=== PATIENT | female | born 1955 | race Caucasian/White ===

== ENCOUNTER → 2020-12-21 | Outpatient (CLI) | payer MEDICARE ==
[~2020-12-21] MED LIST: ACET325T14 PO; ASPI81TA45 PO; ATOR40TA78 PO; CHOL10003 PO; IBUP200C8 PO; LEVO50TA5 PO; LOSA1TAB25 PO; ZINC50CA PO; vitamin e PO
[2020-12-21 16:24] LABS: ALANINE AMINOTRANSFERASE 35 U/L (12-78); ANION GAP 5 mmol/L (5-15); CHLORIDE 99 mmol/L (98-107); CREATININE 0.68 mg/dL (0.55-1.02)
[2020-12-21 16:26] LABS: ALKALINE PHOSPHATASE 115 U/L (45-117); BILIRUBIN,TOTAL 0.5 mg/dL (0.2-1.0); TOTAL PROTEIN 7.6 g/dL (6.4-8.2)
== END | disposition home or self-care (01) ==
LOC: STAR 15:13
PROVIDERS: ATTEND Surgery
DX: Z01.818 Encounter for other preprocedural examination (principal); C50.412 Malignant neoplasm of upper-outer quadrant of left female breast
CPT/HCPCS: 36415; 80053; 93005

== ENCOUNTER 2020-12-26 06:58 | Day surgery (SDC) | payer MEDICARE ==
[~2020-12-26] VITALS: Ht 167.6 cm; Wt 74.5 kg
[2020-12-26 07:23] VITALS: BP 164/81
[2020-12-26] MEDS ORDERED: CHLORHEXIDINE 15 ML UDC PO ONE (07:30)
[2020-12-26] MEDS ORDERED: LIDOCAINE-MPF 1%, 2ML INFIL ONE (07:30)
[2020-12-26] MEDS ORDERED: LACTATED RINGERS 1,000 ML IV SCH (07:30)
[2020-12-26] MEDS ORDERED: LIDOCAINE/PF 1%, 30ML ONE (09:33)
[2020-12-26] MEDS ORDERED: ISOSULFAN BLUE 10 MG/ML, 5ML IV ONE (09:33)
[2020-12-26] MEDS ORDERED: EPINEPHRINE 1 MG/ML, 1ML ONE (09:33)
[2020-12-26] MEDS ORDERED: BUPIVACAINE/PF 0.5% ONE (09:33)
[2020-12-26] MEDS ORDERED: SCOPOLAMINE 1MG PATCH TD SCH (10:00)
[2020-12-26] MEDS ORDERED: HYDROmorphone 1 MG/ML, 1ML INJ IVPush PRN (10:30)
[2020-12-26] MEDS ORDERED: MEPERIDINE/PF 25MG/0.5ML IVPush PRN (10:30)
[2020-12-26] MEDS ORDERED: ONDANSETRON 2MG/ML, 2ML IVPush PRN (10:30)
[2020-12-26] MEDS ORDERED: HYDROcodone/APAP 7.5-325MG/15ML UDC PO PRN (10:30)
[2020-12-26] MEDS ORDERED: PROMETHAZINE 25 MG/ML, 1ML IVPush PRN (10:30)
[2020-12-26] MEDS ORDERED: PROPOFOL 10 MG/ML, 20ML ONE (10:47)
[2020-12-26] MEDS ORDERED: CEFAZOLIN 1,000 MG ONE (10:47)
[2020-12-26] MEDS ORDERED: SCOPOLAMINE 1MG PATCH TD ONE (10:47)
[2020-12-26] MEDS ORDERED: FENTANYL PF 100 MCG/2ML ONE ×3 (10:47→12:30)
[2020-12-26] MEDS ORDERED: DEXAMETHASONE 4 MG/ML, 1ML ONE (10:47)
[2020-12-26] MEDS ORDERED: MIDAZOLAM 1 MG/ML, 2ML ONE (10:47)
[2020-12-26] MEDS ORDERED: ONDANSETRON 2MG/ML, 2ML ONE (10:47)
[2020-12-26] MEDS ORDERED: EPHEDRINE 50 MG/ML, 1ML ONE (10:47)
[2020-12-26] MEDS: FENTANYL PF 100 MCG/2ML IV PRN ×2 (12:30→12:55)
[2020-12-26] MEDS ORDERED: OXYcodone 5 MG/5 ML ORAL.SOL UDC ONE ×2 (12:30→12:58)
[2020-12-26] MEDS: OXYcodone 5 MG/5 ML ORAL.SOL UDC PO PRN ×2 (12:34→12:55)
[2020-12-26] MEDS ORDERED: OXYC5TAB98 PO (12:40)
[2020-12-26] MEDS ORDERED: hydrALAzine 20 MG/ML, 1ML ONE (12:46)
[2020-12-26] MEDS ORDERED: hydrALAzine 20 MG/ML, 1ML IV ONE (13:00)
== END 2020-12-26 15:45 | disposition home or self-care (01) ==
LOC: OUT 06:58
PROVIDERS: ATTEND Surgery
DX: C50.412 Malignant neoplasm of upper-outer quadrant of left female breast (principal); I10 Essential (primary) hypertension; E78.5 Hyperlipidemia, unspecified; E03.9 Hypothyroidism, unspecified; M19.90 Unspecified osteoarthritis, unspecified site; F17.210 Nicotine dependence, cigarettes, uncomplicated; Z17.0 Estrogen receptor positive status [ER+]; Z79.82 Long term (current) use of aspirin; Z79.890 Hormone replacement therapy; Z79.899 Other long term (current) drug therapy
CPT/HCPCS: 19307; 88307; 88333; J0171; J0360; J0690; J1100; J2250; J2405; J2704; J3010; J7120